=== PATIENT | male | born 1990 | race Two or more races ===

== ENCOUNTER 2017-10-24 11:33 | Emergency (ER) | payer MEDICAID ==
[~2017-10-24] VITALS: Ht 157.5 cm; Wt 59.0 kg
[2017-10-24 13:23] LABS: Basophils # (auto) 0.1 uL; Basophils % (auto) 0.8 % (0.0-2.0); Eosinophils # (auto) 0.1 uL; Eosinophils % (auto) 1.4 % (0.0-7.0); Hematocrit 49.3 % (41.0-53.0); Lymphocytes # (auto) 1.4 uL; Lymphocytes % (auto) 19.6 % (10.0-50.0); Mean Corpuscular Hemoglobin 31.8 pg (28.0-32.0); Mean Corpuscular Hgb Conc. 34.5 g/dL (32.0-36.0); Mean Corpuscular Volume 92.1 fL (80.0-100.0); Monocytes # (auto) 0.5 uL; Monocytes % (auto) 7.3 % (0.0-12.0); Neutrophils # (auto) 5.2 uL; Neutrophils % (auto) 70.9 % (37.0-80.0); Platelet Count (auto) 332 10^3/uL (140-450); Red Blood Cells 5.35 10^6/uL (4.5-5.90); Red Cell Distribution Width 13.1 % (11.8-14.3); White Blood Cell 7.3 10^3/uL (4.4-10.8)
[2017-10-24 13:48] LABS: Alanine Aminotransferase 31 U/L (16-61); Albumin 4.8 g/dL (3.4-5.0); Alkaline Phosphatase 72 U/L (45-117); Anion Gap 6 (5-15); Aspartate Aminotransferase 14 U/L (15-37); BUN/Creatinine Ratio 15.5; Bilirubin, Total 0.5 mg/dL (0.2-1.0); Blood Urea Nitrogen 13 mg/dL (7-18); Calcium 9.6 mg/dL (8.5-10.1); Carbon Dioxide 30 mmol/L (21-32); Chloride 102 mmol/L (98-107); GFR African American 143 mL/min; GFR Non-African American 118 mL/min; Glucose 93 mg/dL (74-106); Potassium 5.1 mmol/L (3.5-5.1); Sodium 138 mmol/L (136-145); Total Protein 8.8 g/dL (6.4-8.2)
[2017-10-24 14:07] LABS: Urine Bacteria NONE SEEN /hpf (None Seen); Urine Blood Negative /uL (Negative); Urine Specific Gravity 1.015 (1.001-1.035); Urine WBC 6 /hpf (0 - 3)
[2017-10-24 14:27] LABS: Alcohol, Urine < 3.0 mg/dL (0-5); Amphetamine Screen, Urine NEGATIVE (NEGATIVE); Barbiturate Scree,Urine NEGATIVE (NEGATIVE); Benzodiazephine Screen, Urine NEGATIVE (NEGATIVE); Cannabinoid Screen, Urine POSITIVE (NEGATIVE); Cocaine Screen, Urine NEGATIVE (NEGATIVE); Opiate Scree,Urine NEGATIVE (NEGATIVE); Phencyclidine Screen, Urine NEGATIVE (NEGATIVE)
[2017-10-24 17:40] VITALS: BP 116/84
[2017-10-24] MEDS ORDERED: IBUPROFEN 600 MG TAB PO ONE ×2 (19:20→19:30)
== END 2017-10-24 19:31 | disposition home or self-care (01) ==
LOC: ER 11:33
DX: R07.89 Other chest pain (principal)
CPT/HCPCS: 36415; 80053; 80307; 81001; 84484; 85025; 85379; 93005

== ENCOUNTER 2017-12-23 21:16 | Emergency (ER) | payer MEDICAID ==
[~2017-12-23] VITALS: Ht 160 cm; Wt 59.0 kg
[2017-12-24] MEDS ORDERED: BUDESONIDE (INHALATION) 0.5 MG/2 ML NEB NEB ONE
[2017-12-24] MEDS ORDERED: ALBUTEROL SULF 2.5 MG/0.5ML(0.5%) NEB SOLN NEB ONE
[2017-12-24 00:25] VITALS: BP 109/82
[2017-12-24] MEDS ORDERED: KETOROLAC TROMETH 60MG/2ML VIAL IM ONE (00:45)
[2017-12-24] MEDS ORDERED: DEXAMETHASONE SOD PHOS 10MG/1ML VIAL INJ IM ONE (00:45)
== END 2017-12-24 01:27 | disposition home or self-care (01) ==
LOC: ER 21:16
DX: J40 Bronchitis, not specified as acute or chronic (principal); F12.10 Cannabis abuse, uncomplicated
CPT/HCPCS: 94640; 96372; 99284; J1100; J1885

== ENCOUNTER 2018-01-30 16:35 | Emergency (ER) | payer MEDICAID ==
[~2018-01-30] VITALS: Ht 157.5 cm; Wt 59.0 kg
[2018-01-30 17:23] VITALS: BP 111/71
[2018-01-30] MEDS ORDERED: KETOROLAC TROMETH 60MG/2ML VIAL IM ONE (18:15)
[2018-01-30] MEDS ORDERED: METHOCARBAMOL 500 MG TAB PO ONE (18:15)
== END 2018-01-30 19:32 | disposition home or self-care (01) ==
LOC: ER 16:44
DX: M54.5 Low back pain (principal); F12.10 Cannabis abuse, uncomplicated
CPT/HCPCS: 72100; 96372; 99284; J1885

== ENCOUNTER 2018-10-02 22:38 | Emergency (ER) | payer MEDICAID ==
[~2018-10-02] VITALS: Ht 157.5 cm; Wt 59.0 kg
[2018-10-02 23:41] VITALS: BP 111/73
[2018-10-03] MEDS ORDERED: methylPREDNISolone SOD SUCC 125 MG/2 ML VL IM ONE (01:30)
[2018-10-03] MEDS ORDERED: KETOROLAC TROMETH 60MG/2ML VIAL IM ONE (01:30)
== END 2018-10-03 02:27 | disposition home or self-care (01) ==
LOC: ER 22:45
DX: M54.5 Low back pain (principal); G89.29 Other chronic pain; F12.10 Cannabis abuse, uncomplicated
CPT/HCPCS: 96372; 99283; J1885; J2930